=== PATIENT | male | born 1935 | race Two or more races ===

== ENCOUNTER → 2017-12-26 | Emergency (ER) | payer OTHER ==
[~2017-12-26] VITALS: Ht 152.4 cm; Wt 61.2 kg
[~2017-12-26] MED LIST: AMANTADINE100 M1; CARBIDOPA-LEVO1 EA11; TACROLIMUS1 MG; ZOLOFT20 MG/1 ML
== END | disposition home or self-care (01) ==
LOC: ER 14:39
DX: G20 Parkinson's disease (principal); F02.80 Dementia in other diseases classified elsewhere, unspecified severity, without behavioral disturbance, psychotic disturbance, mood disturbance, and anxiety; R41.82 Altered mental status, unspecified; E86.0 Dehydration; G25.2 Other specified forms of tremor

== ENCOUNTER 2018-01-23 08:14 | Emergency (ER) | payer OTHER ==
[~2018-01-23] VITALS: Ht 172.7 cm; Wt 56.7 kg
[2018-01-23] MEDS ORDERED: RAPAFLO8 MG (09:14)
[2018-01-23] MEDS ORDERED: SELEGILINE HCL5 MG (09:14)
[2018-01-23] MEDS ORDERED: LEVODOPA25 GM (09:14)
[2018-01-23] MEDS ORDERED: AMANTADINE100 M1 (09:15)
== END 2018-01-23 15:53 | disposition home or self-care (01) ==
LOC: ER 08:14
DX: T83.021A Displacement of indwelling urethral catheter, initial encounter (principal)

== ENCOUNTER 2018-06-17 09:48 | Emergency (ER) | payer OTHER ==
[~2018-06-17] VITALS: Ht 172.7 cm; Wt 59.0 kg
[~2018-06-17 09:48] MED LIST changes: +LEVODOPA25 GM; +RAPAFLO8 MG; +SELEGILINE HCL5 MG
== END 2018-06-17 16:43 | disposition home or self-care (01) ==
LOC: ER 09:48
DX: E11.649 Type 2 diabetes mellitus with hypoglycemia without coma (principal)